=== PATIENT | male | born 1990 | race Caucasian/White ===

== ENCOUNTER 2025-02-27 10:43 | Emergency (ER) | payer OTHER, MEDICAID, SELFPAY ==
[2025-02-27 10:48] VITALS: BP 161/101; PULSE 83; TEMP 36.6; O2SAT 98; BMI 25.1
--- NOTE | 2025-02-27 11:00 | PC.NURSE ---
pt states he vomited and had 1 bout of diarrhea yesterday and had to miss work. openly admits he is only really here for a work note. all of his symptoms have resolved. his spouse is also sick
--- NOTE | 2025-02-27 11:08 | PC.NURSE ---
PT SIGNED AMA FORM AT THIS TIME
--- NOTE | 2025-02-27 11:10 | ED.GENADUL1 ---
HPI HPI - General Adult General Chief complaint: Nausea/Vomiting/Diarrhea Stated complaint: DIARRHEA VOMITING CHILLS Time Seen by Provider: 02/27/25 10:58 Source: patient Mode of arrival: walk-in Limitations: no limitations History of Present Illness HPI narrative: 34-year-old male presented to the emergency department to have disability paperwork filled out. He states he has been vomiting without diarrhea and he missed work yesterday and today. No hematemesis or fever. He states that the people at work are ill. He has no abdominal pain. Related Data Allergies Allergy/AdvReac Type Severity Reaction Status Date / Time diphenhydramine (From Allergy Unknown Swelling Verified 02/27/25 10:48 Benadryl) of Lip/Tongue/Throat Review of Systems ROS Narrative A ten point review of systems is negative except as noted above. PFSH PFSH Social History Little interest or pleasure in doing things: not at all Feeling down, depressed, or hopeless: not at all Exam Narrative Exam Narrative: Nurses note and vital signs reviewed General:The patient appears well and in no apparent distress.Patient is resting comfortably on cart. Skin:Warm, dry, no pallor noted.There is no rash noted. Head:Normocephalic, atraumatic Eye: Normal conjunctiva, no drainage Ears, Nose, Mouth, and Throat: oral mucosa is moist. Nares patent. Cardiovascular:Regular Rate and Rhythm Respiratory:Patient is in no distress, no accessory muscle use, lungs are clear to auscultation, no wheezing, rales or rhonchi Back:non-tender GI: Soft and nontender Musculoskeletal: The patient has no evidence of calf tenderness, no pitting edema, symmetrical pulses noted bilaterally Neurological: Awake and alert Psychiatric:Cooperative Constitutional Vital Signs, click to edit/add: Last Vital Signs Temp 97.8 F 02/27/25 10:48 Pulse 83 02/27/25 10:48 Resp 18 02/27/25 10:48 BP 161/101 H 02/27/25 10:48 Pulse Ox 98 02/27/25 10:48 O2 Del Method Room Air 02/27/25 10:48 Course Vital Signs Vital signs: Vital Signs Temperature 97.8 F 02/27/25 10:48 Pulse Rate 83 02/27/25 10:48 Respiratory Rate 18 02/27/25 10:48 Blood Pressure 161/101 H 02/27/25 10:48 Pulse Oximetry 98 02/27/25 10:48 Oxygen Delivery Method Room Air 02/27/25 10:48 Temperature 97.8 F 02/27/25 10:48 Pulse Rate 83 02/27/25 10:48 Respiratory Rate 18 02/27/25 10:48 Blood Pressure 161/101 H 02/27/25 10:48 Pulse Oximetry 98 02/27/25 10:48 Oxygen Delivery Method Room Air 02/27/25 10:48 Medical Decision Making MDM Narrative Medical decision making narrative: He was offered IV fluids and antiemetics. He states he just wants his disability paperwork filled out. He is refusing any treatment. I have declined to fill out disability paperwork for him. He has walked out of the department. Differential Diagnosis Differential Diagnosis: Nausea and vomiting, gastroenteritis, dehydration Discharge Plan Discharge Stand Alone Forms: Portal Instructions Chief Complaint: Nausea/Vomiting/Diarrhea Clinical Impression: Nausea & vomiting Patient Disposition: Left Against Medical Advice Time of Disposition Decision: 11:04 Condition: Undetermined Mode of Transportation: Private Vehicle Print Language: Palestinian Instructions: Acute Nausea and Vomiting (ED)
--- OUTSIDE RECORDS SUMMARY | 2025-02-27 11:21 | XMS_ITS | Clinical Summary ---
Author Organization [facility] Address [address] [place] [address] Care Team Providers Care Magnet Maker Name Role Phone Lisandra Early HOUSE DETECTIVE Primary Care Provider Allergies Active AllergyReactionsCriticalityNoted UxvoIzogmbsnBldwuyomgsgdfnn04/31/2023 Medications MedicationSigDispense QuantityRefillsLast FilledStart DateEnd DateStatus acetaminophen (Tylenol) 325 MG tablet TAKE 2 TABLETS BY MOUTH EVERY 4 HOURS WHILE AWAKE FOR 10 DAYS11/05/2022ctive cyclobenzaprine (Flexeril) 10 MG tablet TAKE 1 TABLET BY MOUTH EVERY 8 HOURS NEEDED FOR 10 DAYS11/16/2022ctive oxyCODONE (Roxicodone) 5 MG immediate release tablet Take 5 mg by mouth every 6 (six) hours if needed.11/05/2022ctive Family History Medical HistoryRelationNameCommentsDiabetesFatherRelationNameStatusComments FatherAliveMotherAlive Social History Tobacco UseTypesPacks/DayYears UsedDateSmoking Tobacco: Every DayCigarettes Smokeless Tobacco: Never Tobacco Cessation:Ready to Q uit: Not Asked; Counseling Given: Not Answered Alcohol UseStandard Drinks/WeekCommentsYes0 (1 standard drink = 0.6 oz pure alcohol)Sex and Gender InformationValueDate RecordedSex Assigned at BirthNot on fileLegal GclJwds1511/19/2022 1:50 PM EDTGender IdentityNot on fileSexual OrientationNot on file Last Filed Vital Signs Vital SignReadingTime TakenCommentsBlood Pressure--Pulse--Temperature-- Respiratory Rate--Oxygen Saturation--Inhaled Oxygen Concentration--Udpcbn35.1 kg (170 lb)11/22/2022 3:43 PM AJMHvkjtf802.7 cm (5' 8 )11/22/2022 3:43 PM EDTBody Mass Index25.85011/22/2022 3:43 PM EDT Plan of Treatment Not on file Insurance Care Teams Team MemberRelationshipSpecialtyStart DateEnd Date Lisandra Early NP PCP - GeneralFamily Medicine11/22/22
--- OUTSIDE RECORDS SUMMARY | 2025-02-27 11:21 | XMS_ITS | Clinical Summary ---
Author Organization [employer] [facility] tem Address [id number] 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 Name Role Phone Sebastien Miki DO Primary Care Provider Unavail able Allergies Active AllergyReactionsCriticalityNoted DateComments Zshpzxwodpeg-Rwn-FwwpnkxxdzhqnZokhln Nhxnfhos52/25/2017 Social History Tobacco UseTypesPacks/DayYears UsedDateSmoking Tobacco: Never AssessedChildcare AnswerDate QajckdemVpgovbducCvjkkct48/12/2019EmploymentAnswerDate Recorded OsfchfkswxIttiuuy38/12/2019Purpose - LifeAnswerDate RecordedPurpose and direction in bmynXhwjanp09/11/2021Sex and Gender InformationValueDate Recorded Sex Assigned at BirthNot on fileLegal UhaXqvu3910/28/2014 11:50 AM EDTGender IdentityNot on fileSexual OrientationNot on file Plan of Treatment Health MaintenanceDue DateLast DoneCommentsDepression Owbuzafrv97/10/2003Tobacco Affkzayus28/10/2003Adult BMI Fekrjdnft80/10/2009DTaP,Tdap and Td Vaccines (1 - Tdap)2009Influenza Malacqz6611/23/2024 Medical Devices Not on file Insurance Care Teams Team MemberRelationshipSpecialtyStart DateEnd Date Rishabh Crowe DO [facility] - [facility]16
== END 2025-02-27 11:09 | disposition left against medical advice (07) ==
LOC: ER 11:17
PROVIDERS: Emergency Provider Emergency Medicine
DX: R11.2 Nausea with vomiting, unspecified (principal); Z53.29 Procedure and treatment not carried out because of patient's decision for other reasons
CPT/HCPCS: 99281